=== PATIENT | female | born 1985 | race Caucasian/White ===

== ENCOUNTER → 2021-10-13 14:21 | Outpatient (BNVA) | payer OTHER, SELFPAY | PROVIDERS: PCP Internal Medicine; Visit Provider Anesthesiology | DX: M47.816 Spondylosis without myelopathy or radiculopathy, lumbar region (principal); G89.4 Chronic pain syndrome | CPT/HCPCS: 99202 ==

== ENCOUNTER → 2021-12-25 09:07 | Outpatient (BNVA) | payer OTHER, SELFPAY | PROVIDERS: PCP Internal Medicine; Visit Provider Anesthesiology | DX: M47.816 Spondylosis without myelopathy or radiculopathy, lumbar region (principal); M53.3 Sacrococcygeal disorders, not elsewhere classified; G89.4 Chronic pain syndrome | CPT/HCPCS: 99212 ==

== ENCOUNTER → 2022-01-21 11:06 | Outpatient (BNVA) | payer OTHER, SELFPAY | PROVIDERS: PCP Internal Medicine; Visit Provider Anesthesiology | DX: M47.816 Spondylosis without myelopathy or radiculopathy, lumbar region (principal); M53.3 Sacrococcygeal disorders, not elsewhere classified; G89.4 Chronic pain syndrome | CPT/HCPCS: 99212 ==

== ENCOUNTER 2022-02-02 08:10 | Outpatient (REF) | payer OTHER, SELFPAY ==
--- NOTE | ~2022-02-02 | MR_ITS ---
MR CERVICAL SPINE WITHOUT IV CONTRAST CLINICAL INFORMATION: Cervical disc degeneration. Neck pain. COMPARISON: None available. TECHNIQUE: MRI of the cervical spine was obtained using routine sequences without contrast. FINDINGS: Cervical alignment is maintained. The vertebral body heights are preserved. The disc volumes are normal. There is no bone marrow edema. There are no acute fractures. Craniocervical junction is unremarkable. There is no cord signal abnormality. The cervical arterial flow voids are maintained. There are no significant extraspinal soft tissue findings. Partially imaged intracranial compartment is unremarkable. C2-C3: Disc contour is normal. No central canal stenosis and no foraminal stenosis. C3-C4: Disc contour is normal. Uncovertebral joint spurring and facet arthropathy result in mild right-sided foraminal encroachment. C4-C5: Disc contour is normal. Uncovertebral joint spurring and facet arthropathy result in mild left-sided renal encroachment. C5-C6: Slight annular disc bulge. No central canal stenosis and no foraminal stenosis. C6-C7: Slight annular disc bulge. No central canal stenosis and no foraminal stenosis. C7-T1: Slight annular disc bulge. No central canal stenosis and no foraminal stenosis. MR/MR cervical spine wo con IMPRESSION: Mild cervical spondylosis. No severe central canal stenosis and no severe foraminal stenosis within the cervical spine.
== END 2022-02-02 08:11 | disposition home or self-care (01) ==
LOC: HO.MRI 08:10
PROVIDERS: Visit Provider Anesthesiology
DX: M50.30 Other cervical disc degeneration, unspecified cervical region (principal)
CPT/HCPCS: 72141

== ENCOUNTER → 2022-03-03 11:28 | Outpatient (BNVA) | payer OTHER, SELFPAY | PROVIDERS: Visit Provider Anesthesiology | DX: Z13.89 Encounter for screening for other disorder (principal) ==

== ENCOUNTER → 2022-07-01 11:33 | Outpatient (BNVA) | payer OTHER, SELFPAY | PROVIDERS: Visit Provider Anesthesiology | DX: M50.30 Other cervical disc degeneration, unspecified cervical region (principal); M53.3 Sacrococcygeal disorders, not elsewhere classified; M47.816 Spondylosis without myelopathy or radiculopathy, lumbar region; G89.4 Chronic pain syndrome | CPT/HCPCS: 99212 ==

== ENCOUNTER 2022-07-24 10:56 | Day surgery (SDC) | payer OTHER, SELFPAY ==
[2022-07-24] VITALS (10 sets, daily range): BP systolic 90–120; BP diastolic 55–74; PULSE 51–64; RESP 16–18; TEMP 36.6–36.7; O2SAT 98–100; BMI 20.1
--- NOTE | ~2022-07-24 | FL_ITS ---
EXAMINATION: XR FLUOROSCOPY WITH IMAGES CLINICAL INFORMATION: Ganglion infarct block. Pain. COMPARISON: None. TECHNIQUE: Fluoroscopy performed by Dr. José Manuel Poole. Fluoroscopy time: 0.2 minutes. Cumulative Dose: 1.86 mGy. DAP: 0.457 Gycm2. Images: 3. FINDINGS: There is a spinal needle at the sacral coccygeal region with tip just beyond the anterior cortex. There is expected contrast parallel with the anterior sacral coccygeal region. No visible vascular communication. FL/FL guidance in OR IMPRESSION: Fluoroscopy for pain management procedure.
[2022-07-24] MEDS: Lactated Ringers 1,000 ML 100 ML IVCONT (11:30)
[2022-07-24 11:37] LABS: UPreg QC Valid YES; Urine Pregnancy NEGATIVE (NEGATIVE)
--- NOTE | 2022-07-24 12:51 | HO.ANESPROP2 ---
[facility] Active Problems Active Problems: All Active Problems (Updated 07/01/22 @ 12:20 by José Manuel Poole MD) Coccydynia (Acute) Nontraumatic coccydynia (Acute) Hyperthyroidism (Acute) Degeneration, intervertebral disc, cervical (Acute) Sacroiliac joint dysfunction of right side (Acute) Chronic pain syndrome (Acute) Spondylosis of lumbar spine (Acute) Past Medical History Medical History Chronic pain syndrome Cyst, ovarian Degeneration, intervertebral disc, cervical Depression, major External hemorrhoids Family history of ovarian cancer Hyperthyroidism Post-traumatic stress disorder, unspecified 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 Functional capacity: independent ambulation Patient : No Family History Family history of problems with anesthesia: No Surgical History Surgical History H/O: hysterectomy History of Problems with Anesthesia: No Social History Social History Patient Tobacco Use Status: Never used Tobacco Use of substances other than those prescribed or required for medical reasons: Yes Are you DNR?: No Advance Directives: No Advance Directives Information Provided: Yes Patient : No Meds Allergies Allergy/AdvReac Type Severity Reaction Status Date / Time Iodinated Contrast Media Allergy Anaphylaxis Verified 07/01/22 11:47 penicillin V Allergy UNKNOWN Verified 07/01/22 11:47 shell fish Allergy Unknown Uncoded 07/01/22 11:47 Active Medications: Current Medications Lactated Ringer's (Lr) 1,000 mls @ 100 mls/hr IVCONT .Q10H [facility] Last Admin: 07/24/22 11:30 Dose: 100 mls/hr Home Medications Medication Instructions Recorded Confirmed Last Taken Type sertraline 100 mg tablet 100 mg PO DAILY 01/21/22 Unknown History Exam Exam Date and Time: July 24, 2022 1251 Height,Weight and Vital Signs: Height 5 ft Weight 46.72 kg Last Vital Signs Temp 98.0 F 07/24/22 11:20 Pulse 64 07/24/22 11:20 Resp 16 07/24/22 11:20 BP 112/65 07/24/22 11:20 Pulse Ox 99 07/24/22 11:20 O2 Del Method 07/24/22 11:20 Pertinent Lab Results Pertinent Lab Results: Laboratory Tests 07/24/22 11:03 Urine Test NEGATIVE Airway Mallampati Class: II TM Dist: >3cm Neck ROM: Full Heart: RRR Lungs: CTA Assessment and Plan Final Anesthetic Review Family History of Problems with Anesthesia: No History of Problems with Anesthesia: No ASA Class: II Final Preanesthetic Review: No Changes in Pt Med Stat, Meds/Allgs Chart Reviewed, Consent Obtained/Reviewed and Anes Risks/Benef Reviewed Patient Risk: Low Procedure Risk: Low Anesthetic Plan Anesthetic Plan: MAC: Disposition: Standard PACU
--- NOTE | 2022-07-24 12:55 | MHC.SHP ---
Pre-Procedural Eval Section A Date of Service: 07/24/22 Section B Chief Complaint: Sacrococcygeal disorders, not elsewhere classified Details of Present Illness: as above Relevant Social History: None Present Medications: see Short Stay Collaborative assessment Medical History: No relevant PMH History of Previous Operations: No relevant previous surgery Allergies: Allergies Allergy/AdvReac Type Severity Reaction Status Date / Time Iodinated Contrast Media Allergy Anaphylaxis Verified 07/01/22 11:47 penicillin V Allergy UNKNOWN Verified 07/01/22 11:47 shell fish Allergy Unknown Uncoded 07/01/22 11:47 Review of Systems Sugical H&P ROS: Negative: Constitution, Cardiovascular, Respiratory, Neurological, Psychiatric, Hem-Onc, Allergic/Immunologic, Gastrointestinal, Genitourinary, Musculoskeletal, Integumentary, Endocrine and Eyes/Ears/Nose/Throat Exam Surgical H&P Exam: Normal: HEENT, Normal: Heart, Normal: Lungs, Normal: Extremities, Normal: Abdomen, Normal: Skin and Normal: Neurological Plan Diagnosis/Plan: Unchanged I have reviewed the history and physical and performed a pertinent physical examination on my patient. No changes have occurred unless specified.
--- NOTE | 2022-07-24 13:43 | P.BOP_ITS ---
Brief Operative Note Date of Service: 07/24/22 Pre-op diagnosis: coccydynia Post-op diagnosis: same Procedure: ganglion impar injection Surgeon: José Manuel Poole MD Anesthesia: MAC Was an Coat Repair Inspector used for this Procedure?: No Estimated blood loss (mL): 0 Condition: stable Disposition: PACU
--- NOTE | 2022-07-24 13:43 | W.PM.OPN ---
Operative Note Operative Note Date of Service: 07/24/22 Narrative: ganglion impar injection Informed consent was explained thoroughly to the patient.? All questions about benefits and risks for the procedure were answered. ? Patient came to the operating room and was positioned prone on the operating table with the pillow under the pelvis.? ? [place] [employer] monitors were applied and patient was deeply sedated.? The lower back and buttocks of the patient As well as intergluteal crease were prepped with ChloraPrep prepped and draped with sterile utility towels.? C-arm was brought over the operating field and sq picture of patient's pelvis was demonstrated on the screen.? coccygeal spine was demonstrated on the screen. The disc between 1st and 2nd coccygeal vertebra was chosen as the target of the injection. The projection of the disc on the skin was injected with lidocaine 2% 1-2 cc. After that 22 gauge 3 and 1/2 inch needle was driven to the foremention disc and when the needle got engage into the disc the position of the C-arm was changed into lateral on the AP view the needle was kept as close to midline is possible. The advancement continued on lateral view until the tip of the needle cleared 3 mm from the anterior silhouette of coccygeal spine. After that injection of the contrast was performed into the needle demonstrating retro pelvic spread through the lowest portion of retro pelvic space. There were no observable contrast distribution intravascularly, intra rectally, intravesically. After that injection of the 5 cc of Ropivacaine 0.5% mixed with Kenalog 40 mg was performed into the needle. After that needle was removed sterile Band-Aid was applied. The patient tolerated procedure well. She was taking outside of the operating room to recovery room where she recovered uneventfully.
[2022-07-24] MEDS: fentaNYL citrate/PF 100 MCG/2 ML VIAL 25 MCG IVPUSH ×4 (13:59→14:19)
[2022-07-24] MEDS: oxyCODONE HCl Immed Release 5 MG TABLET 10 MG PO (14:50)
[2022-07-24] MEDS: ondansetron HCL 4 MG/2 ML VIAL IVPUSH (14:53)
== END 2022-07-24 15:43 | disposition home or self-care (01) ==
PROVIDERS: Anesthesiology; Visit Provider Anesthesiology
PROC: (CPT 64999; principal; 2022-07-24 12:40)
DX: M53.3 Sacrococcygeal disorders, not elsewhere classified (principal); G89.4 Chronic pain syndrome; M47.816 Spondylosis without myelopathy or radiculopathy, lumbar region; M50.30 Other cervical disc degeneration, unspecified cervical region; E05.90 Thyrotoxicosis, unspecified without thyrotoxic crisis or storm; Z79.899 Other long term (current) drug therapy; Z88.0 Allergy status to penicillin; Z91.041 Radiographic dye allergy status
CPT/HCPCS: 64999; 81025; J2250; J2405; J3010; J3300

== ENCOUNTER → 2022-08-05 16:07 | Outpatient (BNVA) | payer OTHER, SELFPAY | PROVIDERS: Visit Provider Anesthesiology | DX: M50.30 Other cervical disc degeneration, unspecified cervical region (principal); M53.3 Sacrococcygeal disorders, not elsewhere classified; M47.816 Spondylosis without myelopathy or radiculopathy, lumbar region; G89.4 Chronic pain syndrome | CPT/HCPCS: 99212 ==

== ENCOUNTER 2022-09-13 23:53 | Emergency (ER) | payer OTHER, SELFPAY ==
--- NOTE | ~2022-09-13 | CT_ITS ---
EXAMINATION: CT ABDOMEN AND PELVIS WITHOUT CONTRAST CLINICAL INFORMATION: Right upper quadrant pain COMPARISON: None TECHNIQUE: Multidetector volumetric imaging was performed from the superior aspect of the liver through the pubic symphysis. Sagittal and coronal reformatted images were obtained on the technologist's workstation. This CT examination was performed using dose optimization techniques as appropriate, variously including the following: *Automated exposure control *Adjustment of mA and/or kV according to patient size (this includes techniques or standardized protocols for targeted exams where dose is matched to indication/reason for exam; i.e. extremities or head) *Use of iterative reconstruction technique DLP: 274 mGy-cm FINDINGS: LUNG BASES: Minimal subpleural vague groundglass opacification within the lingula (series 3 image 1. LIVER, GALLBLADDER, AND BILIARY TREE: The liver is normal in size, shape, and attenuation. No focal hepatic lesion or biliary ductal dilatation is present. The gallbladder is unremarkable with no evidence of radiopaque gallstones, gallbladder wall thickening, or obvious pericholecystic inflammatory changes. PANCREAS: Unremarkable. SPLEEN: Unremarkable. ADRENAL GLANDS: Unremarkable. KIDNEYS AND URETERS: The kidneys are normal in size, shape, and attenuation. No hydronephrosis, hydroureter, or calculi seen. No perinephric stranding. Incidental note made of scattered pelvic phleboliths. BLADDER: Decompressed GASTROINTESTINAL TRACT: The appendix is not definitively visualized. A structure suspicious for a diminutive, normal appendix is suggested on series 4 image 520, series 5 image 22). No free intraperitoneal fluid or gas collections. No intestinal dilatation or mural thickening. Normal appearance of the stomach and duodenum. ABDOMINAL WALL: No significant hernia is appreciated. LYMPH NODES: Normal. VASCULAR: Unremarkable. PELVIC VISCERA: Uterus is not visualized. No adnexal lesions. OSSEOUS STRUCTURES: Unremarkable. CT/CT abdomen pelvis wo IV con IMPRESSION: 1. No acute intra-abdominal abnormalities identified. 2. Minimal subpleural groundglass opacification within the lingula which may represent mild infectious or inflammatory pneumonitis. 3. No urolithiasis. No hydronephrosis. 4. The appendix is not definitively visualized. A structure suspicious for a diminutive, normal appendix is suggested. No free intraperitoneal fluid or gas collections.
[2022-09-14 00:27] VITALS: BP 114/76; PULSE 83; RESP 18; TEMP 36.8; O2SAT 96; BMI 21.1
[2022-09-14 00:48] LABS: Basophils Absolute Auto 0.1 X10*3/uL (0.0-0.2); Basophils Percent Auto 0.8 % (0-2); Eosinophils Absolute Auto 0.1 X10*3/uL (0.0-0.4); Eosinophils Percent Auto 0.8 % (0-4); Hematocrit 42.7 % (37.0-47.0); Hemoglobin 14.4 g/dl (12.0-16.0); Imm Gran Abs Auto 0.02 X10*3/uL (0.00-0.03); Imm Gran Pct Auto 0.2 % (0.0-0.4); Lymphocytes Absolute Auto 2.1 X10*3/uL (1.2-4.9); Lymphocytes Percent Auto 22.4 % (20-40); MANUAL DIFF FLAG NO; Mean Corpuscular HGB Conc 33.7 g/dl (31.0-35.0); Mean Corpuscular Hemoglobin 30.8 pg (27.0-33.0); Mean Corpuscular Volume 91.4 fL (80.0-98.0); Mean Platelet Volume 9.1 fL (9.4-12.3); Monocytes Absolute Auto 0.6 X10*3/uL (0.1-1.2); Monocytes Percent Auto 6.4 % (2-11); Neutrophils Absolute Auto 6.5 x10*3/uL (2.0-8.3); Neutrophils Percent Auto 69.4 % (45-73); Platelet Count 343 X10*3/uL (160-400); Red Blood Count 4.67 X10*6/uL (4.20-5.50); Red Cell Distribution Width 13.7 % (11.0-16.0); White Blood Count 9.3 X10*3/uL (4.8-10.8)
[2022-09-14 01:07] LABS: Anion Gap 14 (12-20); Blood Urea Nitrogen 12 mg/dL (9-16); Calcium 9.6 mg/dL (8.4-10.2); Carbon Dioxide 24 mmol/L (22-29); Chloride 105 mmol/L (96-108); Creatinine Clr Calc Pharmacy 68.9; Estimated Glomerular Filt Rate > 60; Glucose Random 90 mg/dL (60-115); Potassium 4.8 mmol/L (3.3-5.1); Sodium 138 mmol/L (135-145)
[2022-09-14 01:26] LABS: Appearance Urine Clear; Color Urine Dark Yellow; Glucose Urine UA Negative (Negative); Leukocyte Esterase Urine Negative (Negative); Nitrite Urine Negative (Negative); Specific Gravity - Urine 1.025 (1.005-1.025); Urine Blood Negative (Negative); Urine Ketones Trace mg/dL (Negative); Urine Protein Negative (Neg-Trace)
[2022-09-14 01:27] LABS: UPreg QC Valid YES; Urine Pregnancy NEGATIVE (NEGATIVE)
--- NOTE | 2022-09-14 01:45 | ED.ABDPAIN ---
HPI - Abdominal Pain General Chief Complaint: Abdominal Pain Stated Complaint: Pelvic Pain - r side Time Seen by Provider: 09/14/22 01:29 Source: patient Mode of arrival: ambulatory Limitations: no limitations History of Present Illness HPI narrative: Patient comes to the emergency room complaining of right lower quadrant pain for 3-4 days. Patient states that for the last 24 hours, patient has had nausea vomiting and diarrhea. Related Data Home Medications Medication Instructions Recorded Confirmed sertraline 100 mg tablet 100 mg PO DAILY 01/21/22 Previous Rx's Medication Instructions Recorded oxycodone-acetaminophen 5 mg-325 1 tab PO Q6H PRN pain 2 days #8 07/24/22 mg tablet (Percocet) tabs ibuprofen 600 mg tablet 600 mg PO TID PRN fever or pain 09/14/22 #20 tabs Allergies Allergy/AdvReac Type Severity Reaction Status Date / Time Iodinated Contrast Media Allergy Anaphylaxis Verified 07/01/22 11:47 penicillin V Allergy UNKNOWN Verified 07/01/22 11:47 shell fish Allergy Unknown Uncoded 07/01/22 11:47 Review of Systems Review of Systems Constitutional : No Weight loss, No Fever, No Chills, No Night Sweats, No Fatigue, No Malaise ENT/Mouth : No Hearing loss, No Ear Pain, No Nasal Congestion, No Sinus Pain, No Hoarseness, No sore throat, No Rhinorrhea, No Swallowing Difficulty Eyes: No Eye Pain, No Swelling, No Redness, No Foreign Body, No Discharge, No Vision Changes Cardiovascular : No Chest Pain, No SOB, No Dyspnea on Exertion, No Orthopnea, No Edema, No Palpitations Respiratory : No Cough, No Sputum, No Wheezing, No Smoke Exposure, No Dyspnea Gastrointestinal : Complaining of nausea vomiting and diarrhea No Constipation, complaining of right lower quadrant pain for 24 hours. Genitourinary : no irregular bleeding, No Dysuria, No Urinary Frequency, No Hematuria, No Urinary Incontinence, No Urgency, No Flank Pain, No Urinary Flow Changes, No Hesitancy Musculoskeletal : No joint pain, No Myalgias, No Joint Swelling Skin : No Skin Lesions, No rash Neuro : No Weakness, No Numbness, No Paresthesias, No Loss of Consciousness, No Dizziness, No Headache Psych : No Anxiety/Panic, No Depression, No SI/HI/AH/VH, No Social Issues, Heme/Lymph: No Bruising, No Bleeding,No Lymphadenopathy Endocrine : No Polyuria, No Polydipsia, No Temperature Intolerance [facility] Past Medical History Medical History Chronic pain syndrome Cyst, ovarian Degeneration, intervertebral disc, cervical Depression, major External hemorrhoids Family history of ovarian cancer Hyperthyroidism Post-traumatic stress disorder, unspecified 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 Oriented X3. No acute distress. Eyes: Pupils equal, round and reactive to light. ENT: Pharynx normal. Neck: Normal inspection. Neck supple. No lymph nodes noted. No crepitus CVS: Normal heart rate and rhythm. Pulses normal. Normal S1 and S2 Respiratory: No respiratory distress. Breath sounds normal. No Wheezing. No rales Abdomen: Soft , mild tenderness to palpation in the right lower quadrant, no guarding no rebound Skin: Skin warm and dry. Normal skin color. Normal skin turgor. Extremities: No lower extremity edema. No Lacerations. No Rash Neuro: Oriented X 3. No motor deficit. No sensory deficit. Moving all extremities. No slurred speech. CN 2 through 12 grossly intact Psych: calm, cooperative, normal affect Course Course Course Narrative: Patient's white blood cell count is normal, despite having nausea vomiting and diarrhea, patient's chemistries are normal Patient offered p.o. Zofran and IM Toradol. CT scan pending CT scan unremarkable. Discussed with patient. Ovarian torsion was considered in the differential. However, patient does look fairly comfortable, physical exam is not suspicious for either appendicitis or ovarian pathology Medical Decision Making Medical Decision Making Differential Diagnoses: Differential diagnosis (Appendicitis, ovarian cyst rupture, ovarian torsion, anxiety, chronic pain) Independent interpretation of EKG, rhythm strip, radiology study: Independent interp EKG,rhythm strip, radiology study I performed an independent interpretation of the: CT Scan My interpretation is uterus is absent, no surrounding inflammation in the right lower quadrant to indicate appendicitis Radiology report: FINDINGS: LUNG BASES: Minimal subpleural vague groundglass opacification within the lingula (series 3 image 1.? LIVER, GALLBLADDER, AND BILIARY TREE: The liver is normal in size, shape, and attenuation. No focal hepatic lesion or biliary ductal dilatation is present. The gallbladder is unremarkable with no evidence of radiopaque gallstones, gallbladder wall thickening, or obvious pericholecystic inflammatory changes.? PANCREAS: Unremarkable.? SPLEEN: Unremarkable.? ADRENAL GLANDS: Unremarkable.? KIDNEYS AND URETERS: The kidneys are normal in size, shape, and attenuation. No hydronephrosis, hydroureter, or calculi seen. No perinephric stranding. Incidental note made of scattered pelvic phleboliths. BLADDER: Decompressed? GASTROINTESTINAL TRACT: The appendix is not definitively visualized. A structure suspicious for a diminutive, normal appendix is suggested on series 4 image 520, series 5 image 22). No free intraperitoneal fluid or gas collections. No intestinal dilatation or mural thickening. Normal appearance of the stomach and duodenum. ABDOMINAL WALL: No significant hernia is appreciated.? LYMPH NODES: Normal. VASCULAR: Unremarkable. PELVIC VISCERA: Uterus is not visualized. No adnexal lesions.? OSSEOUS STRUCTURES: Unremarkable.? CT/CT abdomen pelvis wo IV con IMPRESSION: 1.? No acute intra-abdominal abnormalities identified. 2.? Minimal subpleural groundglass opacification within the lingula which may represent mild infectious or inflammatory pneumonitis. 3.? No urolithiasis. No hydronephrosis. 4.? The appendix is not definitively visualized. A structure suspicious for a diminutive, normal appendix is suggested. No free intraperitoneal fluid or gas collections. ? ? Medications Administered Discontinued Medications Generic Name Dose Route Start Last Admin Trade Name Freq PRN Reason Stop Dose Admin Ketorolac Tromethamine 60 mg 09/14/22 01:53 09/14/22 02:14 Ketorolac Tromethamine 60 Mg/2 Ml Vial IM 09/14/22 01:54 60 mg ONCE ONE Administration Ondansetron HCl 4 mg 09/14/22 01:53 09/14/22 02:14 Ondansetron Odt 4 Mg Tab.Angelo MERIKarine 09/14/22 01:54 4 mg ONCE ONE Administration Discharge Plan Discharge Clinical Impression: Abdominal pain Patient Disposition: Home, Self-Care Instructions: Abdominal Pain (ED) Additional Instructions: Please follow-up with your primary care physician tomorrow. If you have any worsening or new symptoms, please return to the emergency room or call 911 Prescriptions: New ibuprofen 600 mg tablet 600 mg PO TID PRN (Reason: fever or pain) Qty: 20 0RF No Action oxycodone-acetaminophen [Percocet] 5-325 mg tablet 1 tab PO Q6H PRN (Reason: pain) 2 Days Qty: 8 0RF Rx Instructions: Partial Fill upon patient request. sertraline 100 mg tablet 100 mg PO DAILY
[2022-09-14] MEDS: Ondansetron ODT 4 MG TAB.RAPDIS TRANSLINGU (02:14)
[2022-09-14] MEDS: Ketorolac Tromethamine 60 MG/2 ML VIAL IM (02:14)
== END 2022-09-14 03:41 | disposition home or self-care (01) ==
PROVIDERS: Emergency Provider Emergency Medicine
DX: R10.31 Right lower quadrant pain (principal)
CPT/HCPCS: 36415; 74176; 80048; 81003; 81025; 85025; 96372; 99284; J1885

== ENCOUNTER 2022-10-02 13:03 | Outpatient (REF) | payer OTHER, SELFPAY ==
--- NOTE | ~2022-10-02 | CT_ITS ---
EXAMINATION: CT ABDOMEN AND PELVIS WITHOUT CONTRAST CLINICAL INFORMATION: Sacrococcygeal disorders, not elsewhere classified. COMPARISON: CT of the abdomen and pelvis a few weeks ago on 09/14/2022. TECHNIQUE: Multidetector volumetric imaging was performed from the superior aspect of the liver through the pubic symphysis. Sagittal and coronal reformatted images were obtained on the technologist's workstation. This CT examination was performed using dose optimization techniques as appropriate, variously including the following: *Automated exposure control *Adjustment of mA and/or kV according to patient size (this includes techniques or standardized protocols for targeted exams where dose is matched to indication/reason for exam; i.e. extremities or head) *Use of iterative reconstruction technique DLP: 194 mGy-cm FINDINGS: LUNG BASES: A small polygonal 3 mm nodule was noted at the right lung base and unchanged (4:27 compare prior 4:66). No worrisome lung masses or pleural effusions are seen. LIVER, GALLBLADDER, AND BILIARY TREE: The liver is normal in size, shape, and attenuation. No focal hepatic lesion or biliary ductal dilatation is present. The gallbladder is unremarkable with no evidence of radiopaque gallstones, gallbladder wall thickening, or obvious pericholecystic inflammatory changes. PANCREAS: Unremarkable. SPLEEN: Unremarkable. ADRENAL GLANDS: Unremarkable. KIDNEYS AND URETERS: The kidneys are normal in size, shape, and attenuation. No hydronephrosis, hydroureter, or calculi seen. No perinephric stranding. BLADDER: Empty and poorly evaluated. GASTROINTESTINAL TRACT: The small and large bowel are unremarkable. The appendix is unremarkable. ABDOMINAL WALL: No significant hernia is appreciated. LYMPH NODES: Shotty retroperitoneal lymph nodes are present but there is no adenopathy. VASCULAR: Unremarkable. PELVIC VISCERA: The uterus does not appear to be present. OSSEOUS STRUCTURES: Unremarkable. CT/CT abdomen pelvis wo IV con IMPRESSION: 1. No significant abnormality is seen. 2. Incidental note made of a stable 3 mm right lower lobe pulmonary nodule. Fleischner guidelines were followed.
== END 2022-10-02 13:04 | disposition home or self-care (01) ==
LOC: HO.CT 13:03
PROVIDERS: Visit Provider Anesthesiology
DX: M53.3 Sacrococcygeal disorders, not elsewhere classified (principal)
CPT/HCPCS: 74176